=== PATIENT | female | born 1970 | race Caucasian/White ===

== ENCOUNTER 2017-01-27 17:17 | Emergency (ER) | payer BC ==
[2017-01-27 17:25] VITALS: BP 150/76
--- NOTE | 2017-01-27 18:09 | UC ---
Complaint Female HPI - HPI Summary HPI Summary: Patient presents to the with CC of urgency, frequency, burning upon urination. Dark colored, cloudy urine. Denies flank pain. Denies diaphoresis and chills. Denies known fever. No abnormal vaginal discharge reported. Patient is a diabetic and takes medications, but is otherwise healthy. She has never had a UTI before. Symptoms began 1 week ago, have been constant, worse with urination and better with rest. Denies chance of . - History Of Current Complaint Chief Complaint: UCGU Stated Complaint: POSS UTI Time Seen by Provider: 01/27/17 17:44 Hx Obtained From: Patient Hx Last Menstrual Period: 12/25/16 ?: No Onset/Duration: Sudden Onset Timing: Constant Severity Initially: Moderate Severity Currently: Moderate Pain Intensity: 2 Pain Scale Used: 0-10 Numeric Character: Burning Alleviating Factor(s): Nothing Associated Signs And Symptoms: Positive: Negative - Risk Factors Ectopic Risk Factor: Maternal Age ^ 30 Ovarian Torsion Risk Factor: Reproductive Age - Allergies/Home Medications Allergies/Adverse Reactions: Allergies Allergy/AdvReac Type Severity Reaction Status Date / Time Amoxicillin AdvReac Intermediate Hives/Diff. Verified 01/27/17 17:25 Breathing/I tching Home Medications: Home Medications Metformin HCl 500 mg PO BID 01/27/17 [History Confirmed 01/27/17] SUMAtriptan TAB* [Imitrex TAB*] 50 mg PO DAILY PRN 01/27/17 [History Confirmed 01/27/17] PMH/Surg Hx/FS Hx/Imm Hx Previously Healthy: Yes - Surgical History Surgical History: Yes Surgery Procedure, Year, and Place: 1993 - Social History Occupation: Employed Full-time Lives: With Family Alcohol Use: Occasionally Substance Use Type: None Smoking Status (MU): Never Smoked Tobacco Have You Smoked in the Last Year: No Review of Systems Constitutional: Negative Skin: Negative Respiratory: Negative Cardiovascular: Negative Genitourinary: Dysuria, Frequency, Urgency Motor: Negative Neurovascular: Negative Neurological: Negative Psychological: Negative All Other Systems Reviewed And Are Negative: Yes Physical Exam Triage Information Reviewed: Yes Appearance: Well-Appearing, Well-Nourished Vital Signs: Initial Vital Signs Temp 97.7 F 01/27/17 17:22 Pulse 67 01/27/17 17:22 Resp 16 01/27/17 17:22 BP 150/76 01/27/17 17:22 Pulse Ox 100 01/27/17 17:22 Vital Signs Reviewed: Yes Eye Exam: Normal Eyes: Positive: Conjunctiva Clear Neck exam: Normal Neck: Positive: Supple, No Lymphadenopathy Respiratory Exam: Normal Respiratory: Positive: Chest non-tender Cardiovascular Exam: Normal Cardiovascular: Positive: RRR Musculoskeletal Exam: Normal Musculoskeletal: Positive: Strength Intact Neurological Exam: Normal Neurological: Positive: Alert Psychological: Positive: Normal Response To Family, Age Appropriate Behavior Skin Exam: Normal Complaint Female Dx - Course Course Of Treatment: UA performed. 2+ Leuks seen. Labs WNL. Patient experiencing urgency, frequency and pain on urination. Dark urine noted. No abnormal vaginal discharge or bleeding. No CVA tenderness bilaterally. No previous UTI within last 6 months and no recent Augmentin use. Will treat for uncomplicated UTI and await sensitivities of urine culture. Will treat with bactrim. Allergy to amoxicillin. Pyridium given for comfort. Return precautions and follow up with PCP. No fevers, chills or sweats or concern for pyelonephritis. - Differential Dx/Diagnosis Differential Diagnosis/HQI/PQRI: Renal Colic, Ureteral Stone, Urinary Tract Infection Provider Diagnoses: Urinary Tract Infection in Women Discharge - Discharge Plan Condition: Stable Disposition: HOME Prescriptions: Phenazopyridine TAB* [Pyridium 100 mg TAB*] 100 mg PO TID #12 tab Sulfamethox/Trimethoprim DS* [Bactrim DS 800/160 TAB*] 1 tab PO BID #6 tab MDD 2 Patient Education Materials: Urinary Tract Infection in Women (ED) Referrals: Lesli Carolina MD [Primary Care Provider] - Additional Instructions: Dx. Urinary Tract Infection Drink plenty of fluids. Supplement with cranberry or patiño juice. You may also take an over the counter cranberry supplement. If you have any questions about this, you may ask your pharmacist. If your symptoms have not improved in 1-2 days, if you develop fever, sweats or chills, please go to your emergency room, or call your PCP. Antibiotics were prescribed to you. Please take as directed. Supplement with over the counter probiotics on the opposite schedule of your antibiotic to prevent secondary infections. Do not take together as they may counteract each other. Pyridium: This medication is used to treat pain, burning, increased urination, and increased urge to urinate. These symptoms are usually caused by infection, injury, surgery, catheter, or other conditions that irritate the lower urinary tract. Pyridium will treat the symptoms of a urinary tract infection, but this medication does not treat the actual infection. Take the antibiotic that your doctor prescribes to treat your infection. Pyridium will most likely darken the color of your urine to an orange or red color. This is a normal effect and is not cause for alarm unless you have other symptoms such as pale or yellowed skin, fever, stomach pain, nausea, and vomiting. Darkened urine may also cause stains to your underwear, which may or may not be removed by laundering. It can also permanently stain soft contact lenses, and you should not wear them while taking this medicine.
--- NOTE | 2017-01-30 17:39 | UC ---
Progress - Progress Note Progress Note: please call pt and let her know that current tx is not going to be effective. macrobid 100mg po bid x 7 days sent.
== END 2017-01-27 18:16 | disposition home or self-care (01) ==
LOC: UCEAST 17:17
DX: N39.0 Urinary tract infection, site not specified (principal); B96.20 Unspecified Escherichia coli [E. coli] as the cause of diseases classified elsewhere; Z88.1 Allergy status to other antibiotic agents
CPT/HCPCS: 81003; 87077; 87086; 87186; 99212; G0463

== ENCOUNTER 2017-03-19 18:17 | Emergency (ER) | payer BC ==
[2017-03-19 19:42] VITALS: BP 155/97
--- NOTE | 2017-03-19 20:07 | UC ---
Ear Complaint HPI - HPI Summary HPI Summary: ONE WEEK OF SINUS CONGESTION AND TWO DAYS OF WORSENING LEFT EAR PAIN. WORSENED BY POSITION. HAD COUGH, COUGH IS IMPROVING. - History of Current Complaint Chief Complaint: UCEar Stated Complaint: LEFT EAR PAIN Time Seen by Provider: 03/19/17 19:48 Hx Obtained From: Patient Hx Last Menstrual Period: 02/26/17 Onset/Duration: Gradual Onset, Lasting Weeks Severity Initially: Moderate Severity Currently: Moderate Associated Signs/Symptoms: Positive: URI Symptoms - Allergies/Home Medications Allergies/Adverse Reactions: Allergies Allergy/AdvReac Type Severity Reaction Status Date / Time Amoxicillin AdvReac Intermediate Hives/Diff. Verified 03/19/17 19:35 Breathing/I tching Home Medications: Home Medications Cholecalciferol TAB* [Vitamin D TAB*] 2,000 units PO DAILY 03/19/17 [History Confirmed 03/19/17] Clotrimazole/Betamethasone* [Lotrisone Cream*] 1 applic TOPICAL BID 03/19/17 [ History Confirmed 03/19/17] Naproxen Sodium [Naproxen Sodium 220 mg] 220 mg PO Q12H PRN 03/19/17 [History Confirmed 03/19/17] Nystatin (Topical) [Nyamyc] 100,000 unit TOPICAL BID 03/19/17 [History Confirmed 03/19/17] Pseudoephedrine TAB* [Sudafed TAB*] 30 mg PO Q6H PRN 03/19/17 [History Confirmed 03/19/17] Tolnaftate 1% CREAM* [Tinactin 1% CREAM*] 1 applic TOPICAL BID 03/19/17 [ History Confirmed 03/19/17] metFORMIN* [Glucophage 500 MG TAB *] 500 mg PO BID 03/19/17 [History Confirmed 03/19/17] PMH/Surg Hx/FS Hx/Imm Hx Previously Healthy: Yes - Surgical History Surgical History: Yes Surgery Procedure, Year, and Place: 1993 - Family History Known Family History: Positive: Respiratory Disease - Social History Occupation: Employed Full-time Lives: With Family Alcohol Use: Occasionally Substance Use Type: None Smoking Status (MU): Never Smoked Tobacco Have You Smoked in the Last Year: No - Immunization History Most Recent Influenza Vaccination: Not the 2017/2017 Season Review of Systems Constitutional: Negative Skin: Negative Eyes: Negative ENT: Ear Ache, Sinus Congestion, Sinus Pain/Tenderness Respiratory: Cough Cardiovascular: Negative Gastrointestinal: Negative Genitourinary: Negative Motor: Negative Neurovascular: Negative Musculoskeletal: Negative Neurological: Negative Psychological: Negative Is Patient Immunocompromised?: No All Other Systems Reviewed And Are Negative: Yes Physical Exam Triage Information Reviewed: Yes Appearance: No Pain Distress, Well-Nourished, Ill-Appearing Vital Signs: Initial Vital Signs Temp 98.6 F 03/19/17 19:33 Pulse 68 03/19/17 19:33 Resp 16 03/19/17 19:33 BP 155/97 03/19/17 19:33 Pulse Ox 100 03/19/17 19:33 Vital Signs Reviewed: Yes Eye Exam: Normal ENT: Positive: Pharynx normal, Nasal congestion, TM bulging, TM dull, TM red - LEFT Dental Exam: Normal Neck exam: Normal Neck: Positive: Supple, Nontender, No Lymphadenopathy Respiratory Exam: Normal Respiratory: Positive: Chest non-tender, Lungs clear, Normal breath sounds, No respiratory distress, No accessory muscle use Cardiovascular Exam: Normal Cardiovascular: Positive: RRR, No Murmur, Pulses Normal, Brisk Capillary Refill Abdominal Exam: Normal Abdomen Description: Positive: Nontender, No Organomegaly Musculoskeletal Exam: Normal Neurological Exam: Normal Psychological Exam: Normal Skin Exam: Normal Ear Complaint Course/Dx - Differential Dx/Diagnosis Differential Diagnosis/HQI/PQRI: Otitis Externa, Otitis Media, URI Provider Diagnoses: SINUSITIS Discharge - Discharge Plan Condition: Stable Disposition: HOME Prescriptions: Azithromycin TAB* [Zithromax TAB (Z-NAT) 250 mg #6 tabs] 250 mg PO DAILY #6 tab Fluticasone NASAL SPRAY 50MCG* [Flonase NASAL SPRAY 50MCG*] 2 spray BOTH NARES DAILY #1 btl Patient Education Materials: Sinusitis (ED) Referrals: Lesli Carolina MD [Primary Care Provider] -
== END 2017-03-19 20:15 | disposition home or self-care (01) ==
LOC: UCCORT 18:17
DX: J32.9 Chronic sinusitis, unspecified (principal); H92.02 Otalgia, left ear; Z88.1 Allergy status to other antibiotic agents
CPT/HCPCS: 99212; G0463